=== PATIENT | female | born 2000 | race Caucasian/White ===

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

== ENCOUNTER 2018-12-16 23:02 | Emergency (ER) | payer MEDICAID ==
[~2018-12-16] VITALS: Ht 162.6 cm; Wt 71.2 kg
[2018-12-16 23:10] VITALS: Ht 162.6 cm; Wt 71.2 kg
[2018-12-17] VITALS: BP 101/69
== END 2018-12-17 | disposition home or self-care (01) ==
LOC: ED 23:02
DX: N30.00 Acute cystitis without hematuria (principal); Z88.0 Allergy status to penicillin; Z88.6 Allergy status to analgesic agent

== ENCOUNTER 2019-11-07 14:56 | Emergency (ER) | payer MEDICAID ==
[~2019-11-07] VITALS: Ht 162.6 cm; Wt 75.7 kg
[2019-11-07 15:09] VITALS: BP 118/64; Ht 162.6 cm; Wt 75.7 kg
== END 2019-11-07 17:39 | disposition home or self-care (01) ==
LOC: ED 14:56
DX: K52.9 Noninfective gastroenteritis and colitis, unspecified (principal); Z88.0 Allergy status to penicillin; Z88.6 Allergy status to analgesic agent

== ENCOUNTER 2019-12-06 15:05 | Emergency (ER) | payer MEDICAID ==
[~2019-12-06] VITALS: Ht 162.6 cm; Wt 74.8 kg
[2019-12-06 15:33] VITALS: Ht 162.6 cm; Wt 74.8 kg
[2019-12-06 16:35] VITALS: BP 118/71
== END 2019-12-06 16:35 | disposition home or self-care (01) ==
LOC: ED 15:05
DX: N39.0 Urinary tract infection, site not specified (principal); Z88.0 Allergy status to penicillin

== ENCOUNTER 2020-02-03 14:32 | Emergency (ER) | payer MEDICAID ==
[~2020-02-03] VITALS: Ht 162.6 cm; Wt 76.7 kg
[2020-02-03 14:40] VITALS: Ht 162.6 cm; Wt 76.7 kg
[2020-02-03 15:19] LABS: microscopic required? NO
[2020-02-03 15:25] LABS: BASOPHIL % 0.6 % (0-2); PLATELET COUNT 264 x10^3mcL (130-400); RED CELL DISTRIBUTION WIDTH 13.2 % (11.5-14.5)
[2020-02-03 15:34] LABS: urine erythrocyte NEGATIVE (NEGATIVE)
[2020-02-03 16:02] LABS: CALCIUM 8.9 mg/dL (8.5-10.1); CARBON DIOXIDE 29.4 mmol/L (21-32); CHLORIDE SERUM 103 mmol/L (98-107); CREATININE SERUM 0.7 mg/dL (0.6-1.0); GFR1 > 60 mL/min; GLUCOSE SERUM 96 mg/dL (74-106); POTASSIUM SERUM 4.1 mmol/L (3.5-5.1); SODIUM SERUM 139 mmol/L (136-145)
[2020-02-03 16:07] LABS: ALBUMIN 3.7 g/dL (3.4-5.0); ALKALINE PHOSPHATASE 68 U/L (46-116); ALT/SGPT 24 U/L (14-59); AST/SGOT 14 U/L (15-37); BILIRUBIN TOTAL 0.2 mg/dL (0.20-1.00); LIPASE 158 IU/L (73-393); TOTAL PROTEIN, SERUM 7.5 g/dL (6.4-8.2)
[2020-02-03 17:44] VITALS: BP 119/69
== END 2020-02-03 17:44 | disposition home or self-care (01) ==
LOC: ED 14:32
PROVIDERS: Emergency Medicine
DX: N83.202 Unspecified ovarian cyst, left side (principal); Z87.440 Personal history of urinary (tract) infections; Z88.0 Allergy status to penicillin
CPT/HCPCS: 36415; 87491; 87591; J1885

== ENCOUNTER 2020-10-26 15:52 | Emergency (ER) | payer MEDICAID ==
[~2020-10-26] VITALS: Ht 162.6 cm; Wt 77.1 kg
[2020-10-26 16:07] VITALS: Ht 162.6 cm; Wt 77.1 kg
[2020-10-26 19:52] VITALS: BP 123/70
== END 2020-10-26 19:52 | disposition home or self-care (01) ==
LOC: ED 15:52
DX: T24.212A Burn of second degree of left thigh, initial encounter (principal); T24.211A Burn of second degree of right thigh, initial encounter; Z88.0 Allergy status to penicillin; X08.8XXA Exposure to other specified smoke, fire and flames, initial encounter; Y93.89 Activity, other specified; Y92.89 Other specified places as the place of occurrence of the external cause; Y99.8 Other external cause status
CPT/HCPCS: J2001